=== PATIENT | female | born 1945 | race Caucasian/White ===

== ENCOUNTER → 2020-04-17 | Outpatient (CLI) | payer OTHER ==
[~2020-04-17] MED LIST: CHOL10002; GLIP5 PO; LEVSOD100 PO; LOSA50; LOSA50 PO; METF500; OXYB5 PO; SILVER CENTRUM; SIMV40 PO
[2020-04-17 10:37] LABS: Bun/Creatinine Ratio 17.6 (12.0-20.0); Calcium, Blood 9.3 mg/dL (8.5-10.1); Creatinine, Blood 1.02 mg/dL (0.40-1.00); Potassium, Blood 4.1 mmol/L (3.5-5.5)
== END | disposition home or self-care (01) ==
LOC: LAB EV 10:05 → LAB SHORT 10:05
PROVIDERS: Family Medicine
DX: E11.9 Type 2 diabetes mellitus without complications (principal)
CPT/HCPCS: 36415; 80048; 83036

== ENCOUNTER 2021-01-14 07:39 | Day surgery (SDC) | payer OTHER ==
[~2021-01-14] VITALS: Ht 170.2 cm; Wt 76.5 kg
[~2021-01-14 07:39] MED LIST changes: +ATOR40TA PO; +CLOBET30L; +HYDCHL25 PO
--- NOTE | 2021-01-14 08:39 | NUR ---
01/14/21 0839 KIMO SIMMONS 2 GM IVPB HANGING
--- NOTE | 2021-01-14 09:21 | NUR ---
01/14/21 0921 Leslie Pastor 0.15ML OF EPI 1MG/ML ADDED TO 30ML OF BUPIVICAINE 0.5% TO CREATE A LOCAL OF BUPIVICAINE 0.5% WITH EPI 1:200,000.
== END 2021-01-14 12:30 | disposition home or self-care (01) ==
LOC: ORSCSDS 07:39
PROVIDERS: Podiatrist Foot & Ankle Surgery
PROC: 0SGH04Z Fusion of Right Tarsal Joint with Internal Fixation Device, Open Approach (ICD-10-PCS; principal; 2021-01-14 08:45)
PROC: 0QSQ04Z Reposition Right Toe Phalanx with Internal Fixation Device, Open Approach (ICD-10-PCS; principal; 2021-01-14 08:45)
PROC: 0SGP04Z Fusion of Right Toe Phalangeal Joint with Internal Fixation Device, Open Approach (ICD-10-PCS; principal; 2021-01-14 08:45)
DX: M21.611 Bunion of right foot (principal); M20.41 Other hammer toe(s) (acquired), right foot; M19.071 Primary osteoarthritis, right ankle and foot; I10 Essential (primary) hypertension; E78.5 Hyperlipidemia, unspecified; E11.9 Type 2 diabetes mellitus without complications; E03.9 Hypothyroidism, unspecified; Z79.899 Other long term (current) drug therapy; Z79.84 Long term (current) use of oral hypoglycemic drugs
CPT/HCPCS: 82947; C1713; C1776; J0171; J0690; J1100; J2250; J2370; J2405; J2704; J3010; J7120